=== PATIENT | female | born 1985 | race American Indian/Alaskan Native ===

== ENCOUNTER 2017-01-09 11:05 | Emergency (ER) | payer SELFPAY ==
[2017-01-09 11:58] LABS: Basophils % (Auto) 0.5 % (0.0-1.8); Eosinophils % (Auto) 3.7 % (0.0-4.3); Hematocrit 37.5 % (30.3-42.9); Hemoglobin 12.1 gm/dl (10.1-14.3); Mean Corpuscular HGB Conc 32 % (30-34); Mean Corpuscular Hemoglobin 27 pg (28-32); Mean Corpuscular Volume 83 fl (79-97); Platelet Count 276 K/mm3 (140-440); Red Blood Count 4.52 M/mm3 (3.65-5.03); Red Cell Distribution Width 15.8 % (13.2-15.2)
[2017-01-09 12:13] LABS: Bilirubin,Urine NEG (Negative); Blood,Urine LG (Negative); Ketones,Urine NEG (Negative); Leukocyte Esterase,Urine NEG (Negative); Mucus,Urine FEW /HPF; Nitrite,Urine NEG (Negative); Protein,Urine <15 mg/dL mg/dL (Negative); Urobilinogen,Urine < 2.0 mg/dL (<2.0)
[2017-01-09 12:15] LABS: Anion Gap 16 mmol/L; Blood Urea Nitrogen 6 mg/dL (7-17); Calcium 8.8 mg/dL (8.4-10.2); Carbon Dioxide 26 mmol/L (22-30); Chloride 102.9 mmol/L (98-107); Glucose 103 mg/dL (65-100); Potassium 3.6 mmol/L (3.6-5.0); Sodium 141 mmol/L (137-145)
[2017-01-09] MEDS ORDERED: MORPHINE IV ONE (21:40)
[2017-01-09] MEDS ORDERED: ZOFRAN IV ONE (21:40)
[2017-01-09] MEDS ORDERED: NACL ONE (22:38)
--- NOTE | 2017-01-09 23:16 | Emergency Department Report ---
ED General Adult HPI - General Chief complaint: Urogenital-Female Stated complaint: SEVERE ABD CRAMPING/SEVERE LEG PAIN Time Seen by Provider: 01/09/17 21:39 Source: patient Mode of arrival: Ambulatory Limitations: No Limitations - History of Present Illness Initial comments: Patient is a 31-year-old femalewith past medical history who presents with left side abdominal pain. Patient states that she started her cycle yesterday and then she is having lower abdominal pain and cramping since yesterday. Patient states that pain is a 10 out of 10, left portion of her abdomen nothing makes it better or worse. It is a crampy type of pain. She has not taken any over- the-counter medications. She has no nausea and no vomiting. She denies any vaginal discharge or uterine bleeding. Severity scale (0 -10): 2 - Related Data Previous Rx's Medication Instructions Recorded Last Taken Type Acetaminophen [Acetaminophen TAB] 1,000 mg PO Q6HR #60 tablet 01/10/17 Unknown Rx Cyclobenzaprine HCl [Flexeril 5 MG 5 mg PO TID #30 tab 01/10/17 Unknown Rx TAB] Allergies Allergy/AdvReac Type Severity Reaction Status Date / Time aspirin Allergy facial Verified 01/09/17 11:30 swelling ED Review of Systems ROS: Stated complaint: SEVERE ABD CRAMPING/SEVERE LEG PAIN Other details as noted in HPI Constitutional: denies: chills, fever Eyes: denies: eye pain, eye discharge, vision change ENT: denies: ear pain, throat pain Respiratory: denies: cough, shortness of breath, wheezing Cardiovascular: denies: chest pain, palpitations Endocrine: no symptoms reported Gastrointestinal: abdominal pain. denies: nausea, diarrhea Genitourinary: abnormal menses, other (pelvic pain ). denies: urgency, dysuria , discharge Musculoskeletal: denies: back pain, joint swelling, arthralgia Skin: denies: rash, lesions Neurological: denies: headache, weakness, paresthesias Psychiatric: denies: anxiety, depression Hematological/Lymphatic: denies: easy bleeding, easy bruising ED Past Medical Hx - Past Medical History Previous Medical History?: No - Surgical History Additional Surgical History: "POLYPS REMOVED". SKIN GRAFTING RIGHT THIGH. C- SECTION X 3 - Social History Smoking Status: Light Tobacco Smoker Substance Use Type: None - Medications Home Medications: Home Medications Medication Instructions Recorded Confirmed Last Taken Type Acetaminophen [Acetaminophen TAB] 1,000 mg PO Q6HR #60 tablet 01/10/17 Unknown Rx Cyclobenzaprine HCl [Flexeril 5 MG 5 mg PO TID #30 tab 01/10/17 Unknown Rx TAB] ED Physical Exam - General Limitations: No Limitations General appearance: alert, in no apparent distress - Head Head exam: Present: atraumatic, normocephalic - Eye Eye exam: Present: normal appearance - ENT ENT exam: Present: mucous membranes moist - Neck Neck exam: Present: normal inspection - Respiratory Respiratory exam: Present: normal lung sounds bilaterally. Absent: respiratory distress - Cardiovascular Cardiovascular Exam: Present: regular rate, normal rhythm. Absent: systolic murmur, diastolic murmur, rubs, gallop - GI/Abdominal GI/Abdominal exam: Present: soft, normal bowel sounds - Extremities Exam Extremities exam: Present: normal inspection - Back Exam Back exam: Present: normal inspection - Neurological Exam Neurological exam: Present: alert, oriented X3 - Psychiatric Psychiatric exam: Present: normal affect, normal mood - Skin Skin exam: Present: warm, dry, intact, normal color. Absent: rash ED Course Vital Signs 01/09/17 01/09/17 01/09/17 11:23 20:57 21:01 Temperature 98.4 F Pulse Rate 64 59 L Respiratory 17 11 L Rate Blood Pressure 116/80 121/71 Blood Pressure [Right] O2 Sat by Pulse 100 100 100 Oximetry 01/09/17 01/09/17 01/09/17 21:11 21:19 21:21 Temperature 98.1 F Pulse Rate 57 L 63 63 Respiratory 11 L 12 19 Rate Blood Pressure 121/71 121/71 Blood Pressure 121/71 [Right] O2 Sat by Pulse 100 99 100 Oximetry 01/09/17 01/09/17 01/09/17 21:30 21:41 21:51 Temperature Pulse Rate Respiratory 15 11 L 15 Rate Blood Pressure 120/77 120/77 120/77 Blood Pressure [Right] O2 Sat by Pulse 100 100 99 Oximetry 01/09/17 01/09/17 22:01 22:30 Temperature Pulse Rate Respiratory 12 14 Rate Blood Pressure 120/77 122/63 Blood Pressure [Right] O2 Sat by Pulse 100 Oximetry - Reevaluation(s) Reevaluation #1: 01/10/17 00:34 Patient is feeling better discussed findings the patient on CT scan ULTRASOUND of pelvis to better evaluate for possible lesion on uterus. Reevaluation #2: 01/10/17 01:46 Discuss diagnostic findings with patient and that she has uterine fibroids and that she needs to follow-up with Dr. Bennett. We'll send patient home ED Medical Decision Making - Lab Data Result diagrams: 01/09/17 11:46 01/09/17 11:46 Laboratory Results - last 24 hr 01/09/17 01/09/17 01/09/17 11:46 11:46 11:46 WBC 13.0 H RBC 4.52 Hgb 12.1 Hct 37.5 MCV 83 MCH 27 L MCHC 32 RDW 15.8 H Plt Count 276 Lymph % (Auto) 14.9 [place] % (Auto) 5.6 Eos % (Auto) 3.7 Baso % (Auto) 0.5 Lymph # 1.9 [place] # 0.7 Eos # 0.5 H Baso # 0.1 Seg Neutrophils % 75.3 H Seg Neutrophils # 9.8 H Sodium 141 Potassium 3.6 Chloride 102.9 Carbon Dioxide 26 Anion Gap 16 BUN 6 L Creatinine 0.5 L Estimated GFR > 60 BUN/Creatinine Ratio 12.00 Glucose 103 H POC Glucose Calcium 8.8 HCG, Qual Negative Urine Color Urine Turbidity Urine pH Ur Specific [place] Urine Protein Urine Glucose (UA) Urine Ketones Urine Blood Urine Nitrite Urine Bilirubin Urine Urobilinogen Ur Leukocyte Esterase Urine WBC (Auto) Urine RBC (Auto) U Epithel Cells (Auto) Urine Mucus 01/09/17 01/09/17 11:52 21:13 WBC RBC Hgb Hct MCV MCH MCHC RDW Plt Count Lymph % (Auto) [place] % (Auto) Eos % (Auto) Baso % (Auto) Lymph # [place] # Eos # Baso # Seg Neutrophils % Seg Neutrophils # Sodium Potassium Chloride Carbon Dioxide Anion Gap BUN Creatinine Estimated GFR BUN/Creatinine Ratio Glucose POC Glucose 83 Calcium HCG, Qual Urine Color Straw Urine Turbidity Clear Urine pH 7.0 Ur Specific [place] 1.017 Urine Protein <15 mg/dl Urine Glucose (UA) Neg Urine Ketones Neg Urine Blood Lg Urine Nitrite Neg Urine Bilirubin Neg Urine Urobilinogen < 2.0 Ur Leukocyte Esterase Neg Urine WBC (Auto) 2.0 Urine RBC (Auto) 56.0 U Epithel Cells (Auto) 1.0 Urine Mucus Few - Radiology Data Radiology results: report reviewed, image reviewed CT abdomen and pelvis shows a retropulsed uterus L defined recommendation of pelvic ultrasound to rule out focal uterine lesion. CT abdomen and pelvis shows Ultrasound of pelvis and transvaginal ultrasound show signs of uterine fibroid. - Medical Decision Making Chief medical diagnosis: Menses pain Differential medical diagnosis: Pancreatitis, cholelithiasis, uterine fibroids We'll get CBC, CMP, analgesic pain control, CT abdomen and pelvis, uterine ultrasound. Critical care attestation.: If time is entered above; I have spent that time in minutes in the direct care of this critically ill patient, excluding procedure time. ED Disposition Clinical Impression: Abdominal pain Qualifiers: Abdominal location: left lower quadrant Qualified Code(s): R10.32 - Left lower quadrant pain Uterine fibroid Qualifiers: Uterine leiomyoma location: unspecified location Qualified Code(s): D25.9 - Leiomyoma of uterus, unspecified Disposition: DC-01 TO HOME OR SELFCARE Is pt being admited?: No Does the pt Need Aspirin: No Condition: Stable Instructions: Uterine Fibroids (ED) Prescriptions: Acetaminophen [Acetaminophen TAB] 1,000 mg PO Q6HR #60 tablet Cyclobenzaprine HCl [Flexeril 5 MG TAB] 5 mg PO TID #30 tab Referrals: PRIMARY CARE, [Primary Care Provider] - 3-5 Days MALLY MEEHAN MD [Staff Physician] - 3-5 Days Forms: Work/School Release Form(ED) Time of Disposition: 01:43
--- NOTE | 2017-01-09 23:18 | Cat Scan Report ---
FINAL REPORT PROCEDURE: CT ABDOMEN PELVIS W CON TECHNIQUE: Computerized axial tomography of the abdomen and pelvis was performed after the IV injection of iodinated nonionic contrast. HISTORY: LUQ abd pain COMPARISON: No prior studies are available for comparison. FINDINGS: There are 2 irregular areas of hypervascularity involving left lobe liver measuring 6 millimeters and 10 millimeters most likely representing areas of arterioportal shunting., and adrenal glands are within normal limits. A small simple cyst is noted in the left kidney. Otherwise bilateral kidneys demonstrate normal enhancement without hydronephrosis. Aorta is of normal caliber. Moderate amount of free fluid is noted in the pelvic cavity. There is no free air. Gallbladder is unremarkable. Small bowel loops are within normal limits. Moderate amount of residual stool is noted. Appendix is normal. Uterus is retroverted. There is an ill-defined area of inhomogeneous enhancement involving the left-sided uterus measuring 2.2 centimeters. IMPRESSION: Uterus is retroverted. It demonstrates an ill-defined area of inhomogeneous enhancement involving the fundus. Ultrasound evaluation is recommended to rule out a focal lesion.
[2017-01-10] MEDS ORDERED: TYLENOL PO ONE (00:22)
[2017-01-10] MEDS ORDERED: FLEXERIL PO ONE (00:23)
--- NOTE | 2017-01-10 01:27 | Ultrasound Report ---
FINAL REPORT PROCEDURE: US TRANSVAGINAL TECHNIQUE: Real-time transabdominal sonography in multiple planes of the pelvis was performed. The pelvic structures were not optimally visualized. Transvaginal sonography was then performed to better evaluate the structures and/or abnormalities described below with image documentation. Grayscale, color flow Doppler imaging and velocity spectral waveform analysis of the ovaries was employed (duplex imaging). CPT 10444, 19735, and 19445 HISTORY: evaluate finding of uterus on CT COMPARISON: No prior studies are available for comparison. FINDINGS: UTERUS Size: 11.7 x 5.4 x 6.2 cm. Endometrial thickness: mm. Orientation: Retroflexed. Cervix: Normal. Fibroids/masses: There is a mass with some calcifications identified in the posterior uterus, this measures 3.2 x 1.6 x 2.1 centimeters. Fibroid formation in this region is suspected.. RIGHT Ovary: 4.1 x 1.8 x 2.6 cm. Appearance: Multiple follicular cysts measure up to 9 millimeters. Doppler images: Normal spectral waveforms and color flow. The systolic and diastolic velocities are within normal limits. LEFT Ovary: 4.1 x 1.7 x 1.9 cm. Appearance: Multiple follicular cysts measure up to 1 centimeter. Doppler images: Normal spectral waveforms and color flow. The systolic and diastolic velocities are within normal limits. Pelvic fluid: Moderate. Other: None. IMPRESSION: Calcified solid area in the posterior uterus measures up to 3.2 centimeters most consistent with fibroid formation. Both ovaries have a normal size and appearance. Moderate fluid in the lower pelvis.
--- NOTE | 2017-01-10 01:28 | Ultrasound Report ---
FINAL REPORT PROCEDURE: Pelvic ultrasound, transabdominal and transvaginal with Doppler imaging TECHNIQUE: Real-time transabdominal sonography in multiple planes of the pelvis was performed. The pelvic structures were not optimally visualized. Transvaginal sonography was then performed to better evaluate the structures and/or abnormalities described below with image documentation. Grayscale, color flow Doppler imaging and velocity spectral waveform analysis of the ovaries was employed (duplex imaging). CPT 00676, 57619, and 47386 HISTORY: evaluate finding of uterus on CT COMPARISON: No prior studies are available for comparison. FINDINGS: UTERUS Size: 11.7 x 5.4 x 6.2 cm. Endometrial thickness: mm. Orientation: Retroflexed. Cervix: Normal. Fibroids/masses: There is a mass with some calcifications identified in the posterior uterus, this measures 3.2 x 1.6 x 2.1 centimeters. Fibroid formation in this region is suspected.. RIGHT Ovary: 4.1 x 1.8 x 2.6 cm. Appearance: Multiple follicular cysts measure up to 9 millimeters. Doppler images: Normal spectral waveforms and color flow. The systolic and diastolic velocities are within normal limits. LEFT Ovary: 4.1 x 1.7 x 1.9 cm. Appearance: Multiple follicular cysts measure up to 1 centimeter. Doppler images: Normal spectral waveforms and color flow. The systolic and diastolic velocities are within normal limits. Pelvic fluid: Moderate. Other: None. IMPRESSION: Calcified solid area in the posterior uterus measures up to 3.2 centimeters most consistent with fibroid formation. Both ovaries have a normal size and appearance. Moderate fluid in the lower pelvis.
[2017-01-10 02:07] VITALS: BP 133/74
== END 2017-01-10 02:07 | disposition home or self-care (01) ==
LOC: ED 11:05
DX: R10.32 Left lower quadrant pain (principal); D25.9 Leiomyoma of uterus, unspecified; F17.200 Nicotine dependence, unspecified, uncomplicated; Z88.6 Allergy status to analgesic agent
CPT/HCPCS: 36415; 74177; 76830; 76856; 80048; 81001; 82962; 84703; 85025; 96374; 96375; 99284; J2270; J2405; Q9967

== ENCOUNTER 2017-06-15 06:01 | Emergency (ER) | payer OTHER ==
[2017-06-15 07:14] LABS: Basophils # (Auto) 0.1 K/mm3 (0.0-0.1); Basophils % (Auto) 0.5 % (0.0-1.8); Eosinophils # (Auto) 0.4 K/mm3 (0.0-0.4); Eosinophils % (Auto) 3.5 % (0.0-4.3); Hematocrit 35.7 % (30.3-42.9); Hemoglobin 11.5 gm/dl (10.1-14.3); Lymphocytes # (Auto) 1.2 K/mm3 (1.2-5.4); Lymphocytes % (Auto) 9.7 % (13.4-35.0); Mean Corpuscular HGB Conc 32 % (30-34); Mean Corpuscular Hemoglobin 26 pg (28-32); Mean Corpuscular Volume 82 fl (79-97); Monocytes # (Auto) 0.6 K/mm3 (0.0-0.8); Monocytes % (Auto) 5.1 % (0.0-7.3); Platelet Count 258 K/mm3 (140-440); Red Blood Count 4.39 M/mm3 (3.65-5.03); Red Cell Distribution Width 15.4 % (13.2-15.2)
[2017-06-15 07:24] LABS: Alanine Aminotransferase 11 units/L (7-56); Albumin 4.1 g/dL (3.9-5); BUN/Creatinine Ratio 24; Blood Urea Nitrogen 12 mg/dL (7-17); Calcium 8.8 mg/dL (8.4-10.2); Hemolysis Index 2; Lipase 16 units/L (13-60)
[2017-06-15 08:09] VITALS: BP 107/59
[2017-06-15] MEDS ORDERED: NACL 0.9% 1000 ML 1,000 ML IV ONE (08:33)
[2017-06-15] MEDS ORDERED: ZOFRAN IV ONE (08:33)
[2017-06-15] MEDS ORDERED: TYLENOL PO ONE (08:34)
--- NOTE | 2017-06-15 08:39 | Emergency Department Report ---
HPI - General Chief Complaint: Abdominal Pain Time Seen by Provider: 06/15/17 08:02 - HPI HPI: The patient is 31-year-old female presents for evaluation of abdominal pain and nausea and vomiting. The patient reports 6 days of on and off abdominal pain, crampy in quality, 5/10 in severity, exacerbated with retching, and associated with intractable nausea and multiple episodes of nonbilious, nonbloody emesis, and loose watery stools, void of blood. The patient denies fever, chest pain, cough, dyspnea, blood in the stool, dark tarry stool, dysuria, hematuria, flank pain, genital discharge, inability to pass flatus. ED Past Medical Hx - Past Medical History Previous Medical History?: No - Surgical History Additional Surgical History: "POLYPS REMOVED". SKIN GRAFTING RIGHT THIGH. C- SECTION X 3 - Social History Smoking Status: Former Smoker Substance Use Type: None - Medications Home Medications: Home Medications Medication Instructions Recorded Confirmed Last Taken Type Acetaminophen [Acetaminophen TAB] 1,000 mg PO Q6HR #60 tablet 01/10/17 Unknown Rx Cyclobenzaprine HCl [Flexeril 5 MG 5 mg PO TID #30 tab 01/10/17 Unknown Rx TAB] Acetaminophen/Codeine [Tylenol #3] 1 tab PO Q6H PRN #12 tab 06/15/17 Unknown Rx Ondansetron [Zofran TAB] 4 mg PO Q8HR PRN #20 tablet 06/15/17 Unknown Rx ED Review of Systems ROS: Stated complaint: ABD PAIN Other details as noted in HPI Constitutional: denies: fever ENT: denies: throat or neck pain Respiratory: denies: cough, shortness of breath Cardiovascular: denies: chest pain Endocrine: denies unexplained weight loss or gain Gastrointestinal: reports abdominal pain, nausea Genitourinary: denies: dysuria Musculoskeletal: denies: leg swelling Skin: denies: rash Neurological: denies: headache Hematological/Lymphatic: denies: easy bleeding or easy bruising Psych: denies sadness or hopelessness Physical Exam - Physical Exam Vital Signs: Vital Signs 06/15/17 06/15/17 06/15/17 06:44 07:47 08:00 Temperature 97.6 F 98.8 F Pulse Rate 71 72 Respiratory 14 18 Rate Blood Pressure 121/82 107/59 94/49 Blood Pressure 107/59 [Right] O2 Sat by Pulse 100 100 99 Oximetry Physical Exam: General: well-nourished, well-developed, no acute distress Head: Normocephalic, atraumatic Eyes: normal sclera ENT: Mucous membranes are pink and moist Neck: trachea midline, neck supple, No neck stiffness, no cervical adenopathy Respiratory: Breath sounds equal bilaterally, no wheezing, rales, or rhonchi Cardio: S1 and S2 present, no murmurs, rubs, gallops, capillary refill is brisk Abdomen: Normoactive bowel sounds, soft abdomen, periumbilical tenderness present, no rigidity, no guarding or rebound tenderness Musc: No pitting edema Skin: No rash Neuro: no facial drooping, normal speech Psych: Normal affect ED Course Vital Signs 06/15/17 06/15/17 06/15/17 06:44 07:47 08:00 Temperature 97.6 F 98.8 F Pulse Rate 71 72 Respiratory 14 18 Rate Blood Pressure 121/82 107/59 94/49 Blood Pressure 107/59 [Right] O2 Sat by Pulse 100 100 99 Oximetry ED Medical Decision Making - Lab Data Result diagrams: 06/15/17 06:50 06/15/17 06:50 - Medical Decision Making The patient was seen and examined by myself. The patient is placed on a school lunch monitor and continuous pulse ox. On initial evaluation, the patient was found to be in no distress. Evaluation orders are placed. IV access is established and the patient is given 1 L normal saline fluid bolus and Zofran for nausea, and IV analgesic for pain. Lab results revealed mildly elevated WBC of 12, and overall were grossly non-concerning including hemoglobin, hematocrit , electrolytes, renal function, LFTs, lipase, urinalysis, and neg preg test. The patient was reevaluated and reported that their symptoms were markedly improved. The patient is stable for discharge with outpatient follow-up. The patient is given follow-up and return instructions. The patient expressed understanding and agreed with the plan. The patient is discharged in stable condition. Critical care attestation.: If time is entered above; I have spent that time in minutes in the direct care of this critically ill patient, excluding procedure time. ED Disposition Clinical Impression: Dehydration, Nausea and vomiting in adult, Abdominal pain, acute, periumbilical Disposition: -01 TO HOME OR SELFCARE Is pt being admited?: No Does the pt Need Aspirin: No Condition: Stable Instructions: Abdominal Pain (ED), Gastroenteritis (ED), Food Poisoning (ED), Nutrition Tips for Relief of Diarrhea (ED) Referrals: PRIMARY CARE, [Primary Care Provider] - 3-5 Days Time of Disposition: 08:37
[2017-06-15 08:42] LABS: Bilirubin,Urine NEG (Negative); Blood,Urine MOD (Negative); Color,Urine Yellow (Yellow); Nitrite,Urine NEG (Negative); Protein,Urine <15 mg/dL mg/dL (Negative); Urobilinogen,Urine < 2.0 mg/dL (<2.0)
[2017-06-15 08:43] LABS: Mucus,Urine FEW /HPF
== END 2017-06-15 10:17 | disposition home or self-care (01) ==
LOC: ED 06:01
DX: E86.0 Dehydration (principal); R11.2 Nausea with vomiting, unspecified; R10.33 Periumbilical pain; Z87.891 Personal history of nicotine dependence
CPT/HCPCS: 36415; 80053; 81001; 83690; 84703; 85025; 96361; 96374; 99283; J2405; J7030

== ENCOUNTER 2018-07-22 09:20 | Emergency (ER) | payer SELFPAY ==
[2018-07-22] MEDS ORDERED: NORCO 7.5/325 PO ONE (10:11)
[2018-07-22] MEDS ORDERED: IBUPROFEN PO ONE (10:11)
--- NOTE | 2018-07-22 10:13 | Emergency Department Report ---
ED General Adult HPI - General Chief complaint: Abdominal Pain Stated complaint: KNOT ON L LEG PAIN/ABD PAIN Time Seen by Provider: 07/22/18 10:08 Source: patient Mode of arrival: Ambulatory Limitations: No Limitations - History of Present Illness Initial comments: Patient is a 32-year-old Female presenting with left lower extremity pain. Patient states when she has her menses she normally gets some upper thigh pain however for the last 2 days she's had pain in the left medial thigh that is worse than what she normally has. Patient also feels something under the skin and describes it as a chain of knots. Patient states the pain is 8 out of 10 in severity and is aching. Patient denies dysuria nausea vomiting diarrhea at this time. Patient is currently on her menses. Severity scale (0 -10): 10 - Related Data Previous Rx's Medication Instructions Recorded Last Taken Type Acetaminophen [Acetaminophen TAB] 1,000 mg PO Q6HR #60 tablet 01/10/17 Unknown Rx Cyclobenzaprine HCl [Flexeril 5 MG 5 mg PO TID #30 tab 01/10/17 Unknown Rx TAB] Acetaminophen/Codeine [Tylenol #3] 1 tab PO Q6H PRN #12 tab 06/15/17 Unknown Rx Ondansetron [Zofran TAB] 4 mg PO Q8HR PRN #20 tablet 06/15/17 Unknown Rx Clindamycin [Clindamycin CAP] 300 mg PO Q8H 7 Days cap 07/22/18 Unknown Rx HYDROcodone/APAP 5-325 [[place] 1 each PO Q6HR PRN #15 tablet 07/22/18 Unknown Rx 5/325] Ibuprofen [Motrin] 800 mg PO Q8HR PRN #20 tablet 07/22/18 Unknown Rx Allergies Allergy/AdvReac Type Severity Reaction Status Date / Time aspirin Allergy facial Verified 07/22/18 09:27 swelling ibuprofen [From Motrin] Allergy Swelling Verified 07/22/18 10:20 ED Review of Systems ROS: Stated complaint: KNOT ON L LEG PAIN/ABD PAIN Other details as noted in HPI Comment: All other systems reviewed and negative ED Past Medical Hx - Past Medical History Previous Medical History?: No - Surgical History Past Surgical History?: Yes Additional Surgical History: "POLYPS REMOVED". SKIN GRAFTING left THIGH. C- SECTION X 3 - Social History Smoking Status: Never Smoker Substance Use Type: None - Medications Home Medications: Home Medications Medication Instructions Recorded Confirmed Last Taken Type Acetaminophen [Acetaminophen TAB] 1,000 mg PO Q6HR #60 tablet 01/10/17 Unknown Rx Cyclobenzaprine HCl [Flexeril 5 MG 5 mg PO TID #30 tab 01/10/17 Unknown Rx TAB] Acetaminophen/Codeine [Tylenol #3] 1 tab PO Q6H PRN #12 tab 06/15/17 Unknown Rx Ondansetron [Zofran TAB] 4 mg PO Q8HR PRN #20 tablet 06/15/17 Unknown Rx Clindamycin [Clindamycin CAP] 300 mg PO Q8H 7 Days cap 07/22/18 Unknown Rx HYDROcodone/APAP 5-325 [[place] 1 each PO Q6HR PRN #15 tablet 07/22/18 Unknown Rx 5/325] Ibuprofen [Motrin] 800 mg PO Q8HR PRN #20 tablet 07/22/18 Unknown Rx ED Physical Exam - General Limitations: No Limitations General appearance: alert, in no apparent distress - Head Head exam: Present: atraumatic, normocephalic - Eye Eye exam: Present: normal appearance - ENT ENT exam: Present: mucous membranes moist - Neck Neck exam: Present: normal inspection - Respiratory Respiratory exam: Present: normal lung sounds bilaterally. Absent: respiratory distress, wheezes, rales, rhonchi - Cardiovascular Cardiovascular Exam: Present: regular rate, normal rhythm. Absent: systolic murmur, diastolic murmur, rubs, gallop - GI/Abdominal GI/Abdominal exam: Present: soft, normal bowel sounds. Absent: distended, tenderness, guarding, rebound - Extremities Exam Extremities exam: Present: normal inspection, tenderness (patient has tenderness to the left medial thigh. This small area of nodularity is appreciated with palpation. There is no overlying rash or skin induration.) - Back Exam Back exam: Present: normal inspection - Neurological Exam Neurological exam: Present: alert, oriented X3 - Psychiatric Psychiatric exam: Present: normal affect, normal mood - Skin Skin exam: Present: warm, dry, intact, normal color. Absent: rash ED Course Vital Signs 07/22/18 07/22/18 09:27 10:17 Temperature 98.6 F Pulse Rate 74 Respiratory 20 19 Rate Blood Pressure 111/81 O2 Sat by Pulse 100 Oximetry ED Medical Decision Making - Lab Data Lab Results 07/22/18 Range/Units 10:24 Urine Color Yellow (Yellow) Urine Turbidity Slightly-cloudy (Clear) Urine pH 5.0 (5.0-7.0) Ur Specific [place] 1.027 (1.003-1.030) Urine Protein 30 mg/dl (Negative) mg/dL Urine Glucose (UA) Neg (Negative) mg/dL Urine Ketones Neg (Negative) mg/dL Urine Blood Lg (Negative) Urine Nitrite Neg (Negative) Ur Reducing Substances Not Reportable Urine Bilirubin Neg (Negative) Urine Ictotest Not Reportable Urine Urobilinogen < 2.0 (<2.0) mg/dL Ur Leukocyte Esterase Neg (Negative) Urine WBC (Auto) 4.0 (0.0-6.0) /HPF Urine RBC (Auto) > 182.0 (0.0-6.0) /HPF U Epithel Cells (Auto) 1.0 (0-13.0) /HPF Urine Mucus 3+ /HPF Urine HCG, Qual Negative (Negative) - Radiology Data [facility] [address] [place] [address] Vascular Lab Report Signed Patient: JAQUELINE APPIAH MR#: [id number] : 1985 Acct:[id number] Age/Sex: 32 / F ADM Date: 07/22/18 Loc: ED Attending Dr: Ordering Physician: TED SAMUEL MD Date of Service: 07/22/18 Procedure(s): VL venous duplex LE LT Accession Number(s): [id number] cc: TED SAMUEL MD FINAL REPORT EXAM: VL VENOUS DUPLEX LE LT HISTORY: left inner thigh pain COMPARISON: None. TECHNIQUE: Duplex Doppler ultrasound of the veins of the bilateral lower extremities was performed. FINDINGS: The veins of the bilateral lower extremities are patent, compressible, and demonstrate normal waveforms and augmentation. In the area of clinical interest in the left inner thigh, there are multiple cystic structures without internal flow on color Doppler imaging. IMPRESSION: No evidence of deep venous thrombosis in bilateral lower extremities. Multiple cystic structures in the area of clinical interest in the left inner thigh, multiple cystic structures without internal flow. 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 Transcribed By: RJ Dictated By: MARIAELENA SHER MD Electronically Authenticated By: MARIAELENA SHER MD Signed Date/Time: 02/05/28 1315 DD/ 13 TD/TT: 07/22/18 131 - Medical Decision Making Patient with lymphadenopathy in the left medial thigh and a small chain. Patient's and I had a long conversation about what lymph nodes R and appropriate and not appropriate swelling of the lymph nodes. Patient be started on a short course of antibiotics given primary care follow-up. Critical care attestation.: If time is entered above; I have spent that time in minutes in the direct care of this critically ill patient, excluding procedure time. ED Disposition Clinical Impression: Lymphadenitis, Dysmenorrhea Disposition: TO HOME OR SELFCARE Is pt being admited?: No Does the pt Need Aspirin: No Condition: Stable Instructions: Lymphadenopathy (ED), Dysmenorrhea (ED) Referrals: BIN PRICE MD [Primary Care Provider] - 3-5 Days Time of Disposition: 13:27
[2018-07-22 10:58] LABS: HCG Qualitative,Urine Negative (Negative)
[2018-07-22 11:00] LABS: Bilirubin,Urine NEG (Negative); Blood,Urine LG (Negative); Color,Urine Yellow (Yellow); Mucus,Urine 3+ /HPF; Urobilinogen,Urine < 2.0 mg/dL (<2.0)
[2018-07-22 11:02] LABS: RBC,Urine > 182.0 /HPF (0.0-6.0)
--- NOTE | 2018-07-22 13:15 | Vascular Lab Report ---
FINAL REPORT EXAM: VL VENOUS DUPLEX LE LT HISTORY: left inner thigh pain COMPARISON: None. TECHNIQUE: Duplex Doppler ultrasound of the veins of the bilateral lower extremities was performed. FINDINGS: The veins of the bilateral lower extremities are patent, compressible, and demonstrate normal wavefor ms and augmentation. In the area of clinical interest in the left inner thigh, there are multiple cystic structures withou t internal flow on color Doppler imaging. IMPRESSION: No evidence of deep venous thrombosis in bilateral lower extremities. Multiple cystic structures in the area of clinical interest in the left inner thigh, multiple cystic structures without internal flow. 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
[2018-07-22 13:36] VITALS: BP 123/31
== END 2018-07-22 13:36 | disposition home or self-care (01) ==
LOC: ED 09:20
DX: I88.9 Nonspecific lymphadenitis, unspecified (principal); N94.6 Dysmenorrhea, unspecified; Z88.6 Allergy status to analgesic agent
CPT/HCPCS: 81001; 81025

== ENCOUNTER 2019-02-18 13:00 | Emergency (ER) | payer MEDICAID ==
--- NOTE | 2019-02-18 13:04 | Emergency Department Report ---
Blank Doc - Documentation Documentation: 33-year-old female that presents with left knee pain. This initial assessment/diagnostic orders/clinical plan/treatment(s) is/are subject to change based on patient's health status, clinical progression and re- assessment by fellow clinical providers in the ED. Further treatment and workup at subsequent clinical providers discretion. Patient/guardians urged not to elope from the ED as their condition may be serious if not clinically assessed and managed. Initial orders include: 1- Patient sent to [facility] for further evaluation and treatment 2- xrays
[2019-02-18 13:05] VITALS: BP 136/81
--- NOTE | 2019-02-18 13:53 | XRay Report ---
Left knee, 3 views INDICATION: knee pain. COMPARISON: None. IMPRESSION: Normal bone mineralization. No evidence for fracture, bone lesion or significant joint p athology. A small joint effusion is noted on the lateral image. The remaining soft tissues are unrem arkable. Signer Name: Aldo Dewitt Jr, MD Signed: 02/18/2019 1:49 PM Workstation Name: [id number]
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
== END 2019-02-18 15:57 | disposition home or self-care (01) ==
LOC: ED 13:00
DX: M25.462 Effusion, left knee (principal); F17.200 Nicotine dependence, unspecified, uncomplicated; Z98.890 Other specified postprocedural states; Z79.899 Other long term (current) drug therapy; Z88.6 Allergy status to analgesic agent
CPT/HCPCS: 99283